=== PATIENT | female | born 1990 | race Caucasian/White ===

== ENCOUNTER 2021-01-11 13:40 | Inpatient (IN) | payer OTHER ==
[~2021-01-11] VITALS: Ht 157.5 cm; Wt 63.5 kg
[~2021-01-11 13:40] MED LIST: COLACE100 MG PO
[2021-01-11 14:13] LABS: HEMOGLOBIN 11.2 gm/dl (12.3-15.3); RED BLOOD COUNT 4.05 M/UL (4.00-5.10); WHITE BLOOD COUNT 10.7 K/UL (4.5-11.0)
[2021-01-12 05:48] LABS: HEMOGLOBIN 10.9 gm/dl (12.3-15.3)
[2021-01-13 07:11] LABS: HIV SCREEN 4TH GENERATION WRFX Non Reactive (Non Reactive)
[2021-01-13 09:15] LABS: HBSAG SCREEN Negative (Negative); HEP A AB, IGM Negative (Negative); HEP B CORE AB, IGM Negative (Negative); HEP C VIRUS AB >11.0 (0.0-0.9)
[2021-01-13 15:11] LABS: TREPONEMA PALLIDUM ANTIBODIES Non Reactive (Non Reactive)
[2021-01-14 08:14] LABS: RUBELLA ANTIBODIES, IGG 4.05 index (Immune >0.99)
[2021-01-15 00:09] LABS: AMPHETAMINE Positive (.); AMPHETAMINE GC/MS CONF 4392 ng/mL (Cutoff=500); AMPHETAMINES Positive (Cutoff=1000); AMPHETAMINES, URINE See Final Results ng/mL (Cutoff=1000); BARBITURATE Negative ng/mL (Cutoff=200); BENZODIAZEPINES Negative ng/mL (Cutoff=200); CANNABINOIDS Negative ng/mL (Cutoff=20); COCAINE (METABOLITE) Negative ng/mL (Cutoff=300); CREATININE 130.4 mg/dL (20.0-300.0); MEPERIDINE Negative ng/mL (Cutoff=200); METHADONE Negative ng/mL (Cutoff=300); METHAMPHETAMINE Positive (.); METHAMPHETAMINE GC/MS CONF >3000 ng/mL (Cutoff=500); OPIATES Negative ng/mL (Cutoff=300); PHENCYCLIDINE Negative ng/mL (Cutoff=25); PROPOXYPHENE Negative ng/mL (Cutoff=300)
== END 2021-01-13 15:50 | disposition home or self-care (01) | DRG 806 ==
LOC: GENOP 13:40 → OB 15:43
PROVIDERS: ADMIT Obstetrics & Gynecology
PROC: 10E0XZZ Delivery of Products of Conception, External Approach (ICD-10-PCS; principal; 2021-01-11)
PROC: 10907ZC Drainage of Amniotic Fluid, Therapeutic from Products of Conception, Via Natural or Artificial Opening (ICD-10-PCS; 2021-01-11)
DX: O60.14X0 Preterm labor third trimester with preterm delivery third trimester, not applicable or unspecified (principal); O98.413 Viral hepatitis complicating pregnancy, third trimester; Z37.0 Single live birth; Z3A.36 36 weeks gestation of pregnancy; B19.20 Unspecified viral hepatitis C without hepatic coma
CPT/HCPCS: 36415; 80074; 80307; 81001; 82800; 85014; 85018; 85025; 86762; 86780; 86900; 86901; 87389; J2300; J2590; J3010; U0002